=== PATIENT | female | born 1965 | race Caucasian/White ===

== ENCOUNTER 2016-09-29 14:03 | Emergency (ER) | payer OTHER ==
--- NOTE | 2016-09-29 14:47 | ED Physician Documentation ---
Wrist Injury - HISTORIAN Historian: patient - HPI Stated Complaint: Right Wrist Injury Chief Complaint: Wrist Injury Additional Information: fell into door 3 days ago Onset: days ago (3) Where: home Severity: moderate Duration: persistent since Context: fall Location of Injury: R wrist Modifying Factors: pain on movement Further Comments: no - ROS CONST: no problems NEURO: none CVS/RESP: none EYES/ENT: none - PAST HX Past History: Rt handed Immunizations: referred to PCP Allergies/Adverse Reactions: Allergies Allergy/AdvReac Type Severity Reaction Status Date / Time No Known Allergies Allergy Verified 09/29/16 14:15 Home Medications: Ambulatory Orders Medication Instructions Recorded NK [NK] 09/22/13 - SOCIAL HX Smoking History: cigarettes Alcohol Use: none Drug Use: none - FAMILY HX Family History: no significant history - VITAL SIGNS Vital Signs: Vital Signs Temp Pulse Resp BP Pulse Ox 98 F 91 H 18 126/76 98 09/29/16 14:05 09/29/16 14:05 09/29/16 14:05 09/29/16 14:05 09/29/16 14:05 - REVIEWED ASSESSMENTS Nursing Assessment Reviewed: Yes Vitals Reviewed: Yes Wrist Physical Exam - Physical Exam General Appearance: alert, moderate distress Hand: nml inspection, non-tender, no evidence of FB Wrist: bone tenderness (distal radius) Neuro: sensation nml, other (decreased grasp secondary to pain) Vascular: no vascular compromise Tendon: tendon function nml Forearm/Elbow/Arm: uninjured above wrist Head/ENT: nml inspection Neck/Back: nml inspection Resp/CVS: chest non-tender, breath sounds nml, heart sounds nml, no resp. distress, lungs clear, reg. rate & rhythm Abdomen: non-tender, no organomegaly, nml bowel sounds Progress - Results/Orders Results/Orders: x-ray right wrist ordered - Progress Progress: pt. artie/splinted in er Critical Care Note - Critical Care Note Total Time (mins): 0 ED Results Lab/Radiology - Lab Results Lab Results: none ordered - Radiology Radiology Impressions: compression fgx right radius - Orders Orders: ED Orders Category Date Time Status Artie Wrap Affected Extremity 1T Care 09/29/16 14:42 Ordered WRIST 3 VIEWS OR MORE [RAD] Stat Exams 09/29/16 Ordered Discharge Clincal Impression: Wrist fracture Qualifiers: Encounter type: initial encounter Fracture type: closed Laterality: right Qualified Code(s): S62.101A - Fracture of unspecified carpal bone, right wrist, initial encounter for closed fracture Clincal Impression: (Ruled Out): Wrist sprain Referrals: Jose Francisco Heart MD [Primary Care Provider] - 2 Days Home Medications: Ambulatory Orders NK [NK] 09/22/13 Comments: discharged in stable condition with artie, ice, ibuprofen otc Condition: Stable Disposition: 01 HOME, SELF-CARE Decision to Admit: NO Decision Time: 14:45
--- NOTE | 2016-09-29 15:13 | Diagnostic Imaging Report ---
[facility] [id number] [facility] [address] [id number] Report Submission Date: Sep 29, 2016 2:50:23 PM LABORATORY CUREMAN Patient Study Name: JOSE CHOW Date: Sep 29, 2016 2:21:34 PM LABORATORY CUREMAN Modality Type: CR Gender: F Description: UPPER EXTREMITY : 61 Institution: [facility] Physician FILIPPO DELANEY - ER EXAMINATION: Right wrist, three views. HISTORY: Pain after fall. FINDINGS: There is sclerosis and through the distal metaphysis of the radius with mild irregularity of the radial cortex suggesting impaction fracture however no significant displacement is noted. Correlate with site of pain. The ulna is normal. IMPRESSION: 1. Increased sclerosis across the distal portion of the metaphysis may represent mild impaction fracture, correlate with site of pain. Electronically signed on Sep 29, 2016 2:50:23 PM LABORATORY CUREMAN by: Henok KAISER
[2016-09-29 15:17] VITALS: BP 118/68
== END 2016-09-29 15:15 | disposition home or self-care (01) ==
LOC: ED 14:03
DX: S62.101A Fracture of unspecified carpal bone, right wrist, initial encounter for closed fracture (principal); W19.XXXA Unspecified fall, initial encounter; Y93.9 Activity, unspecified; Y99.9 Unspecified external cause status
CPT/HCPCS: 73110; L3908; 99283